=== PATIENT | male | born 1970 | race Caucasian/White ===

== ENCOUNTER 2018-10-03 06:07 | Day surgery (SDC) | payer BC ==
[~2018-10-03] VITALS: Ht 193 cm; Wt 159.1 kg
[2018-10-03 06:35] LABS: HEMATOCRIT 46.1 % (42.0-54.0); HEMOGLOBIN 15.5 g/dL (13.5-17.5); MCH 28.4 pg (26.0-34.0); MCHC 33.6 g/dL (31.0-37.0); MCV 84.4 fL (80.0-100.0); MEAN PLATELET VOLUME 10.4 fL (7.4-10.4); RBC 5.46 10x6/uL (4.20-6.10); RDW 13.1 % (11.5-14.5); WBC 8.2 10x3/uL (4.8-10.8)
[2018-10-03] MEDS ORDERED: PROTONIX40 MG PO (06:58)
[2018-10-03] MEDS ORDERED: HYDROCHLOROTHIA50 MG (06:59)
[2018-10-03 07:05] VITALS: BP 150/82; Ht 193 cm; Wt 159.1 kg
[2018-10-03] MEDS ORDERED: AVAPRO150 MG PO (07:05)
--- NOTE | 2018-10-03 10:07 | NUR ---
[address].
--- NOTE | 2018-10-03 10:23 | NUR ---
DC INSTRUCTIONS GIVEN TO PT/FAMILY. STATE UNDERSTANDING. DC'D IV CATH FULLY INTACT.
--- NOTE | 2018-10-03 10:30 | NUR ---
PT LEFT UNIT VIA WC AT 1030
--- NOTE | 2018-10-05 14:01 | OP ---
PATIENT NAME: ANALI LY MEDICAL RECORD: [id number] :66 LOCATION:[facility] ADMISSION DATE: SURGEON: GORDON WHITE DO DATE OF OPERATION: 10/03/2018 PROCEDURE: Colonoscopy with polypectomy. INDICATION FOR PROCEDURE: Stool DNA based colorectal cancer screening positive and family history of colon cancer in the patient's mother. SCOPE: Olympus video pediatric colonoscope. MEDICATIONS: Propofol 600 mg IV per anesthesia. WITHDRAWAL TIME: 19 minutes. ESTIMATED BLOOD LOSS: Minimal. COMPLICATIONS: None. FINDINGS: Informed consent was given. The patient was made comfortable with the above medication. After reaching an adequate level of sedation by slow IV push, the patient was placed on his left side. A digital rectal examination was performed and was normal. The endoscope was then advanced under direct visualization through the rectum to the cecum, confirmed by the presence of the appendiceal orifice and the ileocecal valve. The endoscope was slowly withdrawn and the mucosa was carefully examined. Prep quality was fair. There were 4 polyps visualized on today's examination. They were all benign appearing and sessile, and ranged in size from 2-5 mm in diameter. Two were located in the transverse colon, one was located in the descending colon, and one was located in the rectum. All 4 polyps were removed using hot forceps in one piece and completely retrieved. Retroflexion was performed in the rectum with visualization of grade I internal hemorrhoids without bleeding. The endoscope was withdrawn from the patient. The patient tolerated the procedure well and there were no complications. IMPRESSION: 1. Four polyps as described above, removed using hot forceps. 2. Grade I internal hemorrhoids without bleeding. PLANS AND RECOMMENDATIONS: 1. Discharge home when recovery parameters are met. 2. Follow up biopsy specimen results. 3. High-fiber diet. 4. Continue current medications. 5. Recall colonoscopy in 3 years for surveillance based on personal history of polyps and family history of colon cancer. TRANSINT:[id number] Voice Confirmation ID: [id number] DOCUMENT ID: [id number] OPERATIVE REPORT [id number] ANALI LY GORDON WHITE DO at 1401 CC: [id number] DICTATION DATE: 10/03/18 0948 [employer]: 10/03/18 1208 [facility] 10/03/18 [facility] [address] [place] [address]
== END 2018-10-03 10:30 | disposition home or self-care (01) ==
LOC: D.OPS 06:07
PROVIDERS: Anesthesiology; ATTEND Internal Medicine Gastroenterology
DX: Z12.11 Encounter for screening for malignant neoplasm of colon (principal); D12.3 Benign neoplasm of transverse colon; K62.1 Rectal polyp; K64.0 First degree hemorrhoids; Z80.0 Family history of malignant neoplasm of digestive organs; Z01.812 Encounter for preprocedural laboratory examination